=== PATIENT | female | born 1995 | race Caucasian/White ===

== ENCOUNTER → 2024-04-28 | Outpatient (CLI) | payer MEDICAID ==
[~2024-04-28] VITALS: Ht 154.9 cm; Wt 68.0 kg
[2024-04-28] MEDS: albuterol 2.5 MG/3 ML nebule NEB ONE (10:32)
[2024-04-28 10:34] VITALS: PULSE 70; RESP 14; O2SAT 98
[2024-04-28 10:46] VITALS: PULSE 73; RESP 16
== END | disposition home or self-care (01) ==
LOC: RT 09:57
PROVIDERS: ATTEND Registered Nurse
DX: R94.2 Abnormal results of pulmonary function studies (principal); J45.991 Cough variant asthma; J44.9 Chronic obstructive pulmonary disease, unspecified; J98.4 Other disorders of lung
CPT/HCPCS: 94060; 94760